=== PATIENT | male | born 1990 | race Caucasian/White ===

== ENCOUNTER 2025-07-13 17:54 | Emergency (ER) | payer MEDICAID ==
[~2025-07-13] VITALS: Ht 175.3 cm; Wt 73.0 kg
[2025-07-13 18:01] VITALS: O2SAT 98
[2025-07-13] MEDS: ACETAMINOPHEN 325MG TABLET PO ONE (18:15)
[2025-07-13] MEDS: KETOROLAC 30MG/ML VIAL IV ONE (18:15)
[2025-07-13 18:28] LABS: BASOPHILS % 0.8 % (0.0-2.0); EOSINOPHILS % 1.5 % (0.0-5.0); HEMATOCRIT. 41.8 % (42.0-52.0); HEMOGLOBIN. 14.6 g/dL (14.0-18.0); LYMPHOCYTES % 26.9 % (20.0-50.0); MEAN PLATELET VOLUME 7.3 fl (7.4-10.4); MONOCYTES % 7.5 % (2.0-8.0); NEUTROPHILS % 63.3 % (40.0-76.0); PLATELET 243 x1000/uL (130-400); RED BLOOD CELL COUNT 4.57 mill/uL (4.7-6.1); RED CELL DISTRIBUTION WIDTH 13.8 % (11.6-14.6)
[2025-07-13 18:45] LABS: CREATININE 0.9 mg/dL (0.6-1.3); UREA NITROGEN BLOOD 8 mg/dL (9-23)
[2025-07-13] MEDS ORDERED: LEVETIRACETAM 1,500MG in NACL 100ML PREMIX IV STA (19:04)
[2025-07-13] MEDS ORDERED: LEVE100023 MT (19:11)
[2025-07-13] MEDS ORDERED: IBUP-1455 MT (19:11)
[2025-07-13] MEDS ORDERED: METH-653 MT (19:17)
[2025-07-13] MEDS: LEVETIRACETAM 1500MG PREMIX 100 ML IV SCH (19:39)
[2025-07-13 20:28] VITALS: BP 131/83; PULSE 95; RESP 20; TEMP 36.8; O2SAT 96
== END 2025-07-13 20:38 | disposition home or self-care (01) ==
LOC: ER 17:54
DX: S33.5XXA Sprain of ligaments of lumbar spine, initial encounter (principal); G40.901 Epilepsy, unspecified, not intractable, with status epilepticus; F10.229 Alcohol dependence with intoxication, unspecified; Z91.128 Patient's intentional underdosing of medication regimen for other reason; Y90.9 Presence of alcohol in blood, level not specified
CPT/HCPCS: 80048; 80320; 85025; 36415; 71045; 72100; 96365; 96375; 99284; J1953; J1885; G0480